=== PATIENT | male | born 1970 | race Hispanic/Latino ===

== ENCOUNTER 2020-12-15 11:10 | Emergency (ER) | payer OTHER ==
[~2020-12-15] VITALS: Ht 175.3 cm; Wt 83.9 kg
[2020-12-15 11:12] VITALS: BP 153/94
== END 2020-12-15 13:59 | disposition left against medical advice (07) ==
LOC: EDH 11:10
DX: M25.511 Pain in right shoulder (principal); Z53.21 Procedure and treatment not carried out due to patient leaving prior to being seen by health care provider

== ENCOUNTER 2020-12-19 08:44 | Emergency (ER) | payer SELFPAY ==
[~2020-12-19] VITALS: Ht 162.6 cm; Wt 83.9 kg
[2020-12-19 08:46] VITALS: BP 135/92
[2020-12-19] MEDS ORDERED: HYDROCODONE/ACETAMINOPHEN 5/325 MG TAB PO ONE (10:00)
[2020-12-19] MEDS ORDERED: IBUP-2070 PO (11:16)
[2020-12-19] MEDS ORDERED: ACET1TAB25 PO (11:16)
== END 2020-12-19 11:25 | disposition home or self-care (01) ==
LOC: EDH 08:44
DX: M75.01 Adhesive capsulitis of right shoulder (principal); M25.511 Pain in right shoulder
CPT/HCPCS: 73030

== ENCOUNTER 2022-05-24 23:35 | Emergency (ER) | payer OTHER ==
[~2022-05-24 23:35] MED LIST: ACET-2079 PO; IBUP-2070 PO
== END 2022-05-24 23:48 | disposition left against medical advice (07) ==
LOC: EDH 23:35
DX: M79.601 Pain in right arm (principal); R07.89 Other chest pain; Z53.21 Procedure and treatment not carried out due to patient leaving prior to being seen by health care provider
CPT/HCPCS: 93005